=== PATIENT | female | born 1970 | race African-American/Black ===

== ENCOUNTER 2017-05-04 15:17 | Emergency (ER) | payer MEDICAID ==
[~2017-05-04] VITALS: Ht 165.1 cm; Wt 60.0 kg
[~2017-05-04 15:17] MED LIST: KEPPRA; TEGRETOL
[2017-05-04 15:25] VITALS: BP 137/82
== END 2017-05-04 16:04 | disposition left against medical advice (07) ==
LOC: ER 15:23
DX: Z53.21 Procedure and treatment not carried out due to patient leaving prior to being seen by health care provider (principal)